=== PATIENT | male | born 1955 | race Hispanic/Latino ===

== ENCOUNTER → 2025-04-23 | Outpatient (CLI) | payer OTHER ==
--- NOTE | 2025-04-23 16:23 | HMCIMG ---
EXAM: CT HEART SAVER, Ca SCORE CLINICAL HISTORY: SCREENING CONTRAST: None. COMPARISON: None provided. FINDINGS: [place] VESSELS CALCIUM SCORE:- Left main coronary- 5.3 Left anterior descending- 227.9 Left circumflex- 0.6 Right main coronary- 430.2 Total- 664.0 Valves:- Aortic valve calcification- present Mitral valve calcification- no Tricuspid valve calcification- no IMPRESSION: 1. Coronary artery calcification with total calcium score of 664.0. This corresponds to the 91st percentile. 2. Aortic valve calcification present. /[place]ameron
== END | disposition home or self-care (01) ==
LOC: RAH 12:44
PROVIDERS: ATTEND Internal Medicine Cardiovascular Disease
DX: Z13.6 Encounter for screening for cardiovascular disorders (principal); I35.8 Other nonrheumatic aortic valve disorders; I25.10 Atherosclerotic heart disease of native coronary artery without angina pectoris
CPT/HCPCS: 75571